=== PATIENT | female | born 2000 | race Caucasian/White ===

== ENCOUNTER 2022-12-16 05:13 | Inpatient (IN) | payer BC ==
[2022-12-16] MEDS ORDERED: NA CHLORIDE 0.9% 1,000 ML ONE ×2 (06:16→07:36)
[2022-12-16] MEDS ORDERED: MORPHINE 4 MG/ML SYR ONE ×3 (06:16→09:05)
[2022-12-16] MEDS ORDERED: ONDANSETRON 4 MG/2 ML VIAL ONE ×2 (06:16→07:35)
[2022-12-16 06:19] LABS: Absolute Lymphocytes (CBC) 1.9 K/uL (0.7-4.9); Hematocrit 40.6 % (36.0-45.0); Lymphocytes % 17.5 % (15.3-44.8); MCV 91.5 fL (80-100); MPV 7.4 fL (7.6-11.3); RBC Red Blood Cell Count 4.44 M/uL (3.86-4.86)
[2022-12-16 06:29] LABS: Urine Blood 2+ (Negative); Urine Glucose Trace (Negative); Urine Protein 1+ (Negative)
[2022-12-16 06:34] LABS: Albumin 3.6 g/dL (3.4-5.0); Bilirubin Total 0.3 mg/dL (0.2-1.0); Potassium 3.4 mEq/L (3.5-5.1); Protein, Total 7.4 g/dL (6.4-8.2)
[2022-12-16 06:55] LABS: Specific Gravity 1.016 (1.005-1.030); Urine Bacteria <20 /HPF (<20); Urine Bilirubin NEGATIVE (Negative); Urine Blood 1+ (Negative); Urine Clarity Clear (Clear); Urine Color Yellow (Yellow); Urine Glucose NEGATIVE (Negative); Urine Protein TRACE (Negative); Urine Urobilinogen Normal (Normal); Urine pH 5.5 (5.0-7.0)
[2022-12-16] MEDS ORDERED: METOCLOPRAMIDE 10 MG/2mL INJ ONE (07:34)
--- NOTE | 2022-12-16 08:03 | RAD REPORT ---
EXAM DESCRIPTION: CT - Abdomen Pelvis W Contrast - 12/16/2022 7:05 am CLINICAL HISTORY: LOWER ABD PAIN, NAUSEA COMPARISON: No comparisons TECHNIQUE: Thin cut axial CT imaging of the abdomen and pelvis was performed following intravenous a dministration of 90 mL Isovue 300. Multiplanar reformats were generated and reviewed. All CT scans are performed using dose optimization technique as appropriate and may include automated exposure control or mA/KV adjustment according to patient size. FINDINGS: Incidentally noted peripheral right lower lobe 5 millimeter nodule on axial image 17. This is probably benign given size. No other suspicious findings in the lung bases. The liver, spleen, and pancreas show no suspicious findings. Gallbladder and biliary tree are also wi thout suspicious finding. Patchy enhancement of the renal cortex bilaterally, without significant perinephric fat stranding. No suspicious masses. A 2 millimeter left superior pole nonobstructing calculus. Sub centimeter fluid d ensity cortical cysts bilaterally, too small to characterize. Hydronephrosis. . No dilated bowel loops. Long segment of colonic wall thickening and mucosal hyperenhancement involvin g the distal transverse colon, to the level of the splenic flexure. No free air, free fluid or inflam matory stranding. No hernia, mass or bulky lymphadenopathy. The urinary bladder is without significan t finding. No suspicious bony findings. IMPRESSION: Long segment of colonic wall thickening and mucosal hyperenhancement involving the dista l transverse colon and splenic flexure, concerning for acute infectious or inflammatory colitis. Patchy enhancement of the renal cortex bilaterally. Findings could relate to early pyelonephritis angie bill other inflammatory changes such as interstitial nephritis. Please correlate clinically and with r enal function tests. The findings were communicated to Greg Serna on 12/16/2022 at 07:57 hours.
--- NOTE | 2022-12-16 08:22 | EDPHYS ---
Physician Documentation [facility] Name: Audrey Goode Age: 22 yrs Sex: Female : 2000 Arrival Date: 12/16/2022 Time: 05:16 Bed 20 Private MD: ED Physician Christopher Drake HPI: 12/16 05:49 This 22 yrs old Female presents to ER via Unassigned with complaints of sp4 Abdominal Cramping, Abdominal Pain, Vomiting. 08:14 22-year-old female presents with acute onset of nausea vomiting and moderate to severe sp4 lower abdominal pain just prior to arrival. Patient denies possibility of being and has no prior medical history. Patient denied bloody stools or pain or burning on urination. Historical: - Allergies: 06:00 No Known Allergies; kl - PMHx: 06:00 Migraine; kl - Immunization history:: Adult Immunizations not up to date. - Social history:: Smoking status: Patient denies any tobacco usage or history of. - Family history:: not pertinent. ROS: 08:14 Constitutional: Negative for fever, chills, and weight loss, positive for feeling sp4 unwell Eyes: Negative for injury, pain, redness, and discharge, ENT: Negative for injury, pain, and discharge, Abdomen/GI: Negative constipation, positive lower abdominal pain, nausea, vomiting, watery diarrhea, nonbloody diarrhea Back: Negative for injury and pain, : Negative for injury, bleeding, discharge, and swelling. 08:14 All other systems are negative. Exam: 08:14 Constitutional: This is a well developed, well nourished patient who is awake, alert, sp4 uncomfortable appearing female in moderate distress secondary to pain Head/Face: Normocephalic, atraumatic. Eyes: Pupils equal round and reactive to light, extra-ocular motions intact. Lids and lashes normal. Conjunctiva and sclera are not injected. Cornea within normal limits. Periorbital areas with no swelling, redness, or edema. ENT: Nares patent. No nasal discharge, no septal abnormalities noted. Tympanic membranes are normal and external auditory canals are clear. Oropharynx with no redness, swelling, or masses, exudates, or evidence of obstruction, uvula midline. Mucous membranes moist. Neck: Trachea midline, no thyromegaly or masses palpated, and no cervical lymphadenopathy. Supple, full range of motion without nuchal rigidity, or vertebral point tenderness. No Meningismus. Chest/axilla: Normal chest wall appearance and motion. Nontender with no deformity. No lesions are appreciated. Cardiovascular: Regular rate and rhythm with a normal S1 and S2. No gallops, murmurs, or rubs. Normal PMI, no JVD. No pulse deficits. Respiratory: Lungs have equal breath sounds bilaterally, clear to auscultation and percussion. No rales, rhonchi or wheezes noted. No increased work of breathing, no retractions or nasal flaring. Abdomen/GI: Soft, with normal bowel sounds. No distension or tympany. Lower abdominal tenderness right more than left, equivocal rebound, voluntary guarding. There is no rigidity Back: No spinal tenderness. No costovertebral tenderness. Skin: Warm, dry with normal turgor. Normal color with no rashes, no lesions, and no evidence of cellulitis. MS/ Extremity: Pulses equal, no cyanosis. Neurovascular intact. Full, normal range of motion. Neuro: Awake and alert, GCS 15, oriented to person, place, time, and situation. Cranial nerves II-XII grossly intact. Motor strength 5/5 in all extremities. Sensory grossly intact. Psych: Awake, alert, with orientation to person, place and time. Behavior, mood, and affect are within normal limits Vital Signs: 05:48 BP 142 / 108; Pulse 112; Resp 22; Temp 98.1; Pulse Ox 100% on R/A; Weight 51.26 kg; wm Height 5 ft. 3 in. ; Pain 9/10; 08:05 BP 121 / 79; Pulse 100; Resp 15 S; Pulse Ox 98% on R/A; kc6 05:48 Body Mass Index 20.02 (51.26 kg, 160.02 cm) 05:48 Pain Scale: Adult MDM: 05:54 Patient medically screened. sp4 08:14 Differential diagnosis: STD, Inflammatory bowel disease, irritable bowel syndrome, sp4 colitis, enteritis, pancreatitis, appendicitis, ovarian cyst, bleeding ovarian cyst. Data reviewed: vital signs, nurses notes, lab test result(s), amylase and lipase, CBC, electrolytes, hepatic panel, urinalysis, UPT: radiologic studies, CT scan. Consideration of Admission/Observation Patient was admitted/placed on observation. Escalation of care including admission/observation considered. Patient appropriate for admission. ED course: CT revealed signs of acute transverse colitis, patient has no signs of appendicitis or ruptured ovarian cyst, CT also revealed bilateral perinephric stranding. Patient's pain has improved after IV medications and IV hydration, patient was started on IV antibiotics. Patient was discussed with admitting hospitalist Dr. Vinson who accepted patient for observation IV therapy IV antibiotics. Condition on admit as stated is stable . 12/16 05:54 Order name: IV Saline Lock; Complete Time: 06:22 sp4 12/16 05:54 Order name: Labs collected and sent; Complete Time: 06:22 sp4 12/16 05:49 Order name: Urine Test (obtain specimen); Complete Time: 06:25 sp4 12/16 05:49 Order name: Urinalysis W/Microscopic; Complete Time: 07:28 sp4 12/16 05:54 Order name: CBC with Diff; Complete Time: 07:28 sp4 12/16 05:54 Order name: CMP; Complete Time: 07:28 sp4 12/16 05:54 Order name: Lipase; Complete Time: 07:28 sp4 12/16 06:29 Order name: Urine Dipstick-Ancillary; Complete Time: 07:28 EDMS 12/16 06:29 Order name: Urine --Ancillary (enter results); Complete Time: 08:05 wm 12/16 05:54 Order name: CT Abd/Pelvis - IV Contrast Only; Complete Time: 08:05 sp4 12/16 08:06 Interpretation: Abnormal. sp4 Administered Medications: 06:16 Drug: NS 0.9% IV 1000 ml Route: IV; Rate: 1 bolus; Site: right antecubital; kl 06:29 Follow up: Response: No adverse reaction; Marked relief of symptoms pf1 07:00 Follow up: IV Status: Completed infusion; IV Intake: 1000ml pf1 06:16 Drug: Ondansetron IVP 4 mg Route: IVP; Site: right antecubital; kl 06:29 Follow up: Response: No adverse reaction; Marked relief of symptoms; Nausea is decreasedpf1 06:16 Drug: morphine IVP or IV 4 mg Route: IVP; Infused Over: 4 mins; Site: right antecubital;kl 06:29 Follow up: Response: No adverse reaction; Marked relief of symptoms; Pain is decreased; pf1 RASS: Alert and Calm (0) 07:41 Drug: NS 0.9% IV 1000 ml Route: IV; Rate: 125 ml/hr; Site: right forearm; kc6 07:41 Drug: metoCLOPramide IVP 10 mg Route: IVP; Site: right forearm; kc6 07:41 Drug: Ondansetron IVP 4 mg Route: IVP; Site: right forearm; kc6 07:41 Drug: morphine IVP or IV 4 mg Route: IVP; Infused Over: 4 mins; Site: right forearm; kc6 Disposition Summary: 12/16/22 08:21 Hospitalization Ordered Hospitalization Status: Observation sp4 Provider: Nathan Vinson sp4 Location: Telemetry/MedSurg (observation) sp4 Condition: Stable sp4 Problem: new sp4 Symptoms: have improved sp4 Bed/Room Type: Standard sp4 Room Assignment: sp4 Diagnosis - Other specified noninfective gastroenteritis and colitis sp4 - Acute colitis, acute enteritis, lower abdominal pain, nausea vomiting and diarrhea sp4 Discharge Instructions: - Discharge Summary Sheet pf1 Forms: - SBAR form pf1 - Medication Reconciliation Form sp4 Signatures: Dispatcher [employer] Tish Bejaraon RN RN kl Campbell, Kaitlyn, RN RN kc6 Potepalov, Sergey, MD MD sp4 Olga osei RN pf1
--- NOTE | 2022-12-16 08:22 | ER ---
Nurse's Notes [facility] Name: Audrey Goode Age: 22 yrs Sex: Female : 2000 Arrival Date: 12/16/2022 Time: 05:16 Bed 20 Private MD: Diagnosis: Other specified noninfective gastroenteritis and colitis;Acute colitis, acute enteritis, lower abdominal pain, nausea vomiting and diarrhea Presentation: 12/16 05:58 Chief complaint: Patient states: lower abdominal pain. Coronavirus screen: Vaccine kl status: Patient reports receiving the 2nd dose of the covid vaccine. Ebola Screen: Patient negative for fever greater than or equal to 101.5 degrees Fahrenheit, and additional compatible Ebola Virus Disease symptoms. Initial Sepsis Screen: Does the patient meet any 2 criteria? No. Patient's initial sepsis screen is negative. Does the patient have a suspected source of infection? No. Patient's initial sepsis screen is negative. Risk Assessment: Do you want to hurt yourself or someone else? Patient reports no desire to harm self or others. 05:58 Method Of Arrival: Ambulatory kl 05:58 Acuity: JASON 3 kl Triage Assessment: 06:00 General: Appears uncomfortable, Behavior is calm, cooperative. Pain: Complains of pain kl in suprapubic area. GI: Reports nausea, vomiting. Historical: - Allergies: 06:00 No Known Allergies; kl - PMHx: 06:00 Migraine; kl - Immunization history:: Adult Immunizations not up to date. - Social history:: Smoking status: Patient denies any tobacco usage or history of. - Family history:: not pertinent. Screenin:00 [facility] ED Fall Risk Assessment (Adult) History of falling in the last 3 months, pf1 including since admission No falls in past 3 months (0 pts) Confusion or Disorientation No (0 pts) Intoxicated or Sedated No (0 pts) Impaired Gait No (0 pts) Mobility Assist Device Used No (0 pt) Altered Elimination No (0 pt) Score/Fall Risk Level 0 - 2 = Low Risk Oriented to surroundings, Maintained a safe environment, Educated pt \T\ family on fall prevention, incl call for assistance when getting out of bed, Assessed \T\ reinforced patient's understanding of fall precautions, Provided non-skid footwear, Hourly rounding (assess needs \T\ fall precautionary measures) done, Used ambulatory aids as needed (educated on \T\ assisted with). 06:00 Abuse screen: Denies threats or abuse. Nutritional screening: No deficits noted. pf1 Tuberculosis screening: No symptoms or risk factors identified. Assessment: 06:00 General: Appears in no apparent distress. uncomfortable, well groomed, well developed, pf1 Behavior is calm, cooperative, appropriate for age, quiet. 06:00 Pain: Complains of pain in lower abdominal pain. Neuro: No deficits noted. Level of pf1 Consciousness is awake, alert, obeys commands, Oriented to person, place, time, situation. Cardiovascular: No deficits noted. Capillary refill < 3 seconds Patient's skin is warm and dry. Respiratory: No deficits noted. Airway is patent Trachea midline Respiratory effort is even, unlabored, Respiratory pattern is regular, symmetrical. GI: Abdomen is flat, non-distended, Bowel sounds present X 4 quads. Abd is soft Abdomen is tender to palpation in right lower quadrant and left lower quadrant Reports lower abdominal pain, diarrhea, nausea, vomiting, since 0300 this AM. : No deficits noted. No signs and/or symptoms were reported regarding the genitourinary system. EENT: No deficits noted. No signs and/or symptoms were reported regarding the EENT system. Derm: No deficits noted. No signs and/or symptoms reported regarding the dermatologic system. 07:00 General: Appears in no apparent distress. uncomfortable, Behavior is calm, cooperative, kc6 appropriate for age. Pain: Complains of pain in left lower quadrant and right lower quadrant Pain does not radiate. Pain currently is 8 out of 10 on a pain scale. Quality of pain is described as crampy, dull, Is continuous, Alleviated by nothing. Aggravated by eating, drinking, Also complains of no other associated symptoms. Neuro: Yates Agitation-Sedation Scale (RASS): 0 - Alert and Calm Level of Consciousness is awake, alert, obeys commands, Oriented to person, place, time, situation, Appropriate for age. Cardiovascular: Capillary refill < 3 seconds. Respiratory: Airway is patent Trachea midline Respiratory effort is even, unlabored, Respiratory pattern is regular, symmetrical. GI: Abdomen is flat, non-distended, Bowel sounds present X 4 quads. Abd is soft X 4 quads Abdomen is tender to palpation in right lower quadrant and left lower quadrant Reports lower abdominal pain, diarrhea, nausea, vomiting. : No signs and/or symptoms were reported regarding the genitourinary system. EENT: No signs and/or symptoms were reported regarding the EENT system. Derm: No signs and/or symptoms reported regarding the dermatologic system. Skin is intact, Skin is pink, warm \T\ dry. Musculoskeletal: No signs and/or symptoms reported regarding the musculoskeletal system. Circulation, motion, and sensation intact. Capillary refill < 3 seconds, Range of motion: intact in all extremities. Vital Signs: 05:48 BP 142 / 108; Pulse 112; Resp 22; Temp 98.1; Pulse Ox 100% on R/A; Weight 51.26 kg; wm Height 5 ft. 3 in. ; Pain 9/10; 08:05 BP 121 / 79; Pulse 100; Resp 15 S; Pulse Ox 98% on R/A; kc6 05:48 Body Mass Index 20.02 (51.26 kg, 160.02 cm) 05:48 Pain Scale: Adult ED Course: 05:16 Patient arrived in ED. ja2 05:48 Christopher Drake MD is Attending Physician. sp4 05:53 Patient has correct armband on for positive identification. Placed in gown. Bed in low wm position. Call light in reach. Side rails up X 1. Adult w/ patient. Client placed on continuous cardiac and pulse oximetry monitoring. NIBP monitoring applied. lunchroom monitor on. Pulse ox on. 06:00 Triage completed. kl 06:11 Initial lab(s) drawn, by me, sent to lab. Inserted saline lock: 20 gauge in right wm forearm, using aseptic technique. Blood collected. 06:16 CBC with Diff Sent. kl 06:17 CMP Sent. kl 06:17 Lipase Sent. kl 06:22 Olga osei, DOLORES is Primary Nurse. pf1 06:22 CMP Sent. wm 06:22 Lipase Sent. wm 06:22 Urinalysis W/Microscopic Sent. wm 07:07 CT Abd/Pelvis - IV Contrast Only In Process Unspecified. EDMS 08:20 Nathan Vinson MD is Hospitalizing Provider. sp4 Administered Medications: 06:16 Drug: NS 0.9% IV 1000 ml Route: IV; Rate: 1 bolus; Site: right antecubital; kl 06:29 Follow up: Response: No adverse reaction; Marked relief of symptoms pf1 07:00 Follow up: IV Status: Completed infusion; IV Intake: 1000ml pf1 06:16 Drug: Ondansetron IVP 4 mg Route: IVP; Site: right antecubital; kl 06:29 Follow up: Response: No adverse reaction; Marked relief of symptoms; Nausea is decreasedpf1 06:16 Drug: morphine IVP or IV 4 mg Route: IVP; Infused Over: 4 mins; Site: right antecubital;kl 06:29 Follow up: Response: No adverse reaction; Marked relief of symptoms; Pain is decreased; pf1 RASS: Alert and Calm (0) 07:41 Drug: NS 0.9% IV 1000 ml Route: IV; Rate: 125 ml/hr; Site: right forearm; kc6 07:41 Drug: metoCLOPramide IVP 10 mg Route: IVP; Site: right forearm; kc6 07:41 Drug: Ondansetron IVP 4 mg Route: IVP; Site: right forearm; kc6 07:41 Drug: morphine IVP or IV 4 mg Route: IVP; Infused Over: 4 mins; Site: right forearm; kc6 Intake: 07:00 IV: 1000ml; Total: 1000ml. pf1 Outcome: 08:21 Decision to Hospitalize by Provider. sp4 Signatures: Dispatcher [employer] Tish Bejarano RN RN kl Marsh, Wendy wm Alexander, Jessica ja2 Campbell, Kaitlyn, RN RN kc6 Olga osei RN RN pf1 Christopher Drake MD MD sp4
[2022-12-16] MEDS ORDERED: METRONIDAZOLE 500mg IVPB 500 MG/100 ML BAG IV ONE (08:23)
[2022-12-16] MEDS ORDERED: NA CHLORIDE 0.9% 50 ML ONE (08:23)
[2022-12-16] MEDS ORDERED: CEFTRIAXONE 1000 MG/VIAL ONE (08:23)
[2022-12-16] MEDS ORDERED: ACETAMINOPHEN 500 MG TAB PO PRN (09:43)
[2022-12-16] MEDS ORDERED: HYDROMORPHONE HCL 1 MG/ML INJ IV PRN (09:45)
[2022-12-16] MEDS ORDERED: D5.45NS W/KCL 20MEQ 1,000 ML IV SCH (10:00)
[2022-12-16] MEDS: D5.45NS W/KCL 20MEQ 1,000 ML IV SCH ×2 (10:00→20:34)
[2022-12-16] MEDS ORDERED: D5.45NS W/KCL 20MEQ 1,000 ML IV ONE (10:22)
[2022-12-16 10:43] LABS: SARS-CoV-2 Antigen Rapid Res Negative (Negative)
--- NOTE | 2022-12-16 11:46 | P.HP ---
Certification for Inpatient Patient admitted to: Inpatient With expected LOS: <2 Midnights Practitioner: I am a practitioner with admitting privileges, knowledge of patient current condition, hospital course, and medical plan of care. Services: Services provided to patient in accordance with Admission requirements found in Title 42 Section 412.3 of the Code of Federal Regulations Patient History Date of Service: 12/16/22 Reason for admission: Lower ABD pain, nausea/vomiting/diarrhea History of Present Illness: 22yo F, PMH: Migraine Presented to the ED due to lower abdominal pain, associated with nausea and vomitting. Symptoms began approximately at 3 AM. She was feeling her normal self prior to this and was not doing any strenuous physical activity at the time. Denies fever/chills, no sick contacts, no prior episodes similar to this. Pain in lower abdomen, radiates to lower back. Patient notes shes been on OCP ~1.5 years, and started on a anti-fungal ~1.5-2 weeks ago for "splotches" on RLE that has since resolved. reports resolution of symptoms yet. In the ED, initial CT reports patient to have leukocytosis, edema in long segment of colon, hyperenhancement involving the distal transverse colon and splenic flexure; with concern for inflammatory vs infectious colitis etiology. Allergies No Known Allergies Allergy (Unverified 12/16/22 09:55) Home Medications: Atogepant [Qulipta] 60 mg PO DAILY 12/16/22 Erenumab-Aooe [Aimovig Autoinjector] 140 mg IN SEECOM 12/16/22 terbinafine HCL [Terbinafine HCl] 250 mg PO DAILY 12/16/22 - Past Medical/Surgical History Diabetic: No -: Migraine Past Surgical History: Patient denies surgical history - Family History Father -: Hypertension Mother -: Hypertension - Social History Smoking Status: Never smoker Alcohol use: No CD- Drugs: No Place of Residence: Home Review of Systems 10-point ROS is otherwise unremarkable Physical Examination - Physical Exam General: Alert, Oriented x3, Other (uncomfortable appearing) HEENT: EOMI, Sclerae nonicteric Neck: Supple, No LAD Respiratory: Clear to auscultation bilaterally, Normal air movement Cardiovascular: No edema, Other (sinus tachycardia) Gastrointestinal: Soft and benign, Tenderness (diffuse) Musculoskeletal: No contractures, No tenderness Integumentary: No rashes, No significant lesion Neurological: Normal speech, Normal strength at 5/5 x4 extr, Normal affect - Studies Laboratory Data (last 24 hrs) 12/16/22 06:10: Sodium 139, Potassium 3.4 L, BUN 11, Creatinine 0.77, Glucose 129 H, Total Bilirubin 0.3, AST 14 L, ALT 17, Alkaline Phosphatase 71, Lipase 20 12/16/22 06:10: WBC 11.00 H, Hgb 13.5, Hct 40.6, Plt Count 314 Assessment and Plan - Plan Problem List: Acute transverse colitis Migraine Nausea/Vomiting CT ABD/Pelvis w/contrast - Long segment of colonic wall thickening and mucosal hyperenhancement involving the distal transverse colon and splenic flexure, concerning for acute infectious or inflammatory colitis stool studies ordered ?crohn's vs ifnectious pain control antibiotics NPO, IVF General surgery consulted patient will need outpatient c-scope in ~4 weeks Discharge Plan: Home Plan to discharge in: 48 Hours - Advance Directives Does patient have a Living Will: No Does patient have a Durable POA for Healthcare: No - Code Status/Comfort Care Code Status Assessed: Yes Code Status: Full Code Time Spent Managing Pts Care (In Minutes): 75
--- NOTE | 2022-12-16 15:25 | P.CNS ---
Date of Consult: 12/16/22 PC: I was asked to see this 22-year-old female in regards to her abdominal pain. HPC: This lady, who is visiting from [place], had sudden onset of abdominal pain last night. She describes as being more in her pelvis. She thought initially it was an ovarian cyst. Could no longer stand the pain and was brought in for diagnosis and treatment. PSHx: Negative PMHx: Migraines Social Hx: On control, no known allergies Sys R: No cough, wheeze, shortness of breath. While she is thin anesthetic, this is not new for her and she has been thin all her life. Appetite has been good. Has not recently eaten any exotic foods. O/E: Awake alert vital signs are stable, looks quite comfortable at the moment HEENT: Within normal limits Chest: Chest movement equal bilaterally Abd: Soft nontender no guarding or rebound [place]: Intact Data: CT scan is described as being suggestive of inflammatory process in the transverse colon with possible colitis Impression: Nonsurgical abdomen Plan: The patient is being admitted at this time. She will be given some pain medicine and IV fluids, and follow closely. I imagine she will be discharged soon. I have recommended that she follow-up with her doctors in [place], and then in 2 to 3 weeks time she get a colonoscopy. She is quite amenable to this. I shall discuss with her hospitalist.
[2022-12-16] MEDS: ONDANSETRON 4 MG/2 ML VIAL IV PRN ×2 (15:43→21:41)
[2022-12-16] MEDS: METRONIDAZOLE 500mg IVPB 500 MG/100 ML BAG IV SCH (16:35)
[2022-12-16] MEDS: CIPROFLOXACIN 400mg IV 400 MG/200 ML BAG IV SCH (20:34)
[2022-12-16] MEDS: HYDROMORPHONE HCL 0.5 MG/0.5 ML INJ IV PRN (21:41)
[2022-12-17] MEDS: METRONIDAZOLE 500mg IVPB 500 MG/100 ML BAG IV SCH ×3 (01:00→16:26)
[2022-12-17] MEDS: ONDANSETRON 4 MG/2 ML VIAL IV PRN ×3 (04:48→19:53)
[2022-12-17] MEDS: D5.45NS W/KCL 20MEQ 1,000 ML IV SCH ×3 (04:49→17:26)
[2022-12-17] MEDS: HYDROMORPHONE HCL 0.5 MG/0.5 ML INJ IV PRN ×2 (04:49→09:13)
[2022-12-17 05:18] LABS: Absolute Lymphocytes (CBC) 1.7 K/uL (0.7-4.9); Hematocrit 33.7 % (36.0-45.0); Lymphocytes % 23.6 % (15.3-44.8); MCV 92.4 fL (80-100); MPV 7.2 fL (7.6-11.3); RBC Red Blood Cell Count 3.65 M/uL (3.86-4.86)
[2022-12-17 05:41] LABS: Albumin 2.7 g/dL (3.4-5.0); Bilirubin Total 0.3 mg/dL (0.2-1.0); Magnesium 1.6 mg/dL (1.6-2.4); Phosphorus 1.9 mg/dL (2.5-4.9); Potassium 3.5 mEq/L (3.5-5.1); Protein, Total 5.8 g/dL (6.4-8.2)
--- NOTE | 2022-12-17 07:10 | P.PN ---
Date of Service: 12/17/22 Subjective: feels slightly better; pain decreased, but still needing pain meds frequently unable to tolerate popsicle overnight; caused increased pain, nausea, and vomiting no BM this morning ROS: 10 point ROS as noted above, otherwise negative Physical Exam: GEN: Alert, oriented, NAD HEENT: Normal conjunctiva, sclera anicteric CV: regular rate/rhythm, no edema Pulm: Nonlabored respirations on room air ABD: Soft, mild-mod diffusive tenderness, nondistended Neuro: Normal speech, normal affect Problem List: Acute transverse colitis Migraine Nausea/Vomiting CT ABD/Pelvis w/contrast - Long segment of colonic wall thickening and mucosal hyperenhancement involving the distal transverse colon and splenic flexure, concerning for acute infectious or inflammatory colitis stool studies ordered ?crohn's vs infectious continue IV cipro/flagyl ice chips, IVF pain control General surgery consulted patient will need outpatient c-scope in ~4 weeks VTE: Ambulatory Code: Full Dispo: Home ~24-48 hours
[2022-12-17] MEDS ORDERED: MAGNESIUM SULFATE 1 gm IVPB 1 GM/100 ML BAG IV ONE ×2 (08:00→09:00)
[2022-12-17] MEDS ORDERED: POTASSIUM PHOS IN 0.9 % NACL 15 MMOL/250 ML BAG IV ONE (09:00)
[2022-12-17] MEDS: CIPROFLOXACIN 400mg IV 400 MG/200 ML BAG IV SCH ×2 (09:14→20:00)
[2022-12-18] MEDS: METRONIDAZOLE 500mg IVPB 500 MG/100 ML BAG IV SCH ×3 (00:30→16:14)
[2022-12-18] MEDS: HYDROMORPHONE HCL 0.5 MG/0.5 ML INJ IV PRN ×3 (02:00→23:06)
[2022-12-18] MEDS: ONDANSETRON 4 MG/2 ML VIAL IV PRN ×4 (02:00→23:05)
[2022-12-18] MEDS: D5.45NS W/KCL 20MEQ 1,000 ML IV SCH ×3 (02:00→22:12)
[2022-12-18 04:50] LABS: Absolute Lymphocytes (CBC) 1.9 K/uL (0.7-4.9); Hematocrit 34.7 % (36.0-45.0); Lymphocytes % 27.4 % (15.3-44.8); MCV 92.4 fL (80-100); MPV 7.3 fL (7.6-11.3); RBC Red Blood Cell Count 3.76 M/uL (3.86-4.86)
[2022-12-18 05:08] LABS: Bilirubin Total 0.3 mg/dL (0.2-1.0); Magnesium 1.9 mg/dL (1.6-2.4); Potassium 4.2 mEq/L (3.5-5.1); Protein, Total 6.4 g/dL (6.4-8.2)
[2022-12-18] MEDS ORDERED: POTASSIUM PHOS IN 0.9 % NACL 15 MMOL/250 ML BAG IV ONE (05:53)
--- NOTE | 2022-12-18 07:12 | P.PN ---
Date of Service: 12/18/22 Subjective: feels better today ABD pain this morning not as intense tolerating ice chips without issue some nausea with popsicle last night soft BM this morning ROS: 10 point ROS as noted above, otherwise negative Physical Exam: GEN: Alert, oriented, NAD HEENT: Normal conjunctiva, sclera anicteric CV: regular rate/rhythm, no edema Pulm: Nonlabored respirations on room air ABD: Soft, mild diffusive tenderness slightly more in lower abdomen, nondistended Neuro: Normal speech, normal affect Problem List: Acute transverse colitis Migraine Nausea/Vomiting CT ABD/Pelvis w/contrast - Long segment of colonic wall thickening and mucosal hyperenhancement involving the distal transverse colon and splenic flexure, concerning for acute infectious or inflammatory colitis stool studies ordered ?crohn's vs infectious continue IV cipro/flagyl IVF NPO, advance to clears this morning if worsens, will start steroids for IBD check renal U/S, CT had mild changes of kidneys, and hydro pain control General surgery consulted patient will need outpatient c-scope in ~4 weeks VTE: Ambulatory Code: Full Dispo: Home ~24-48 hours
[2022-12-18] MEDS: CIPROFLOXACIN 400mg IV 400 MG/200 ML BAG IV SCH ×2 (09:27→22:11)
[2022-12-18] MEDS: PROMETHAZINE INJ 25 MG/ML AMP IV PRN (11:07)
[2022-12-18 12:14] VITALS: BMI 19.5
--- NOTE | 2022-12-18 14:19 | RAD REPORT ---
EXAM DESCRIPTION: US - Renal Ultrasound-Complete - 12/18/2022 1:59 pm CLINICAL HISTORY: eval stone, hydro, ?infxn COMPARISON: Abdomen Pelvis W Contrast dated 12/16/2022 TECHNIQUE: Sonographic grayscale and color flow images of the kidneys and bladder were obtained. FINDINGS: Both kidneys are normal in size, shape and echotexture. The right kidney measures 10 cm in length. No hydronephrosis, focal mass or echogenic calculi. The left kidney measures 9.9 cm in length. No hydronephrosis, focal mass, or echogenic calculi. The urinary bladder is unremarkable, with no focal wall masses or echogenic calculi. The left uretera l jet was visualized documenting ureteral patency. IMPRESSION: Unremarkable renal sonogram. No hydroureteronephrosis or echogenic calculi visualized.
[2022-12-18] MEDS: METHYLPREDNISOLONE 125 MG INJ IV SCH (14:46)
[2022-12-19] MEDS: D5.45NS W/KCL 20MEQ 1,000 ML IV SCH ×4 (02:00→16:32)
[2022-12-19 03:38] LABS: Absolute Lymphocytes (CBC) 0.6 K/uL (0.7-4.9); Hematocrit 36.5 % (36.0-45.0); Lymphocytes % 10.1 % (15.3-44.8); MCV 91.7 fL (80-100); MPV 7.7 fL (7.6-11.3); RBC Red Blood Cell Count 3.98 M/uL (3.86-4.86)
[2022-12-19] MEDS: METRONIDAZOLE 500mg IVPB 500 MG/100 ML BAG IV SCH ×3 (03:40→15:40)
[2022-12-19 04:00] LABS: Albumin 3.2 g/dL (3.4-5.0); Bilirubin Total 0.3 mg/dL (0.2-1.0); Magnesium 1.8 mg/dL (1.6-2.4); Phosphorus 2.1 mg/dL (2.5-4.9); Potassium 4.2 mEq/L (3.5-5.1); Protein, Total 6.8 g/dL (6.4-8.2)
--- NOTE | 2022-12-19 07:03 | P.PN ---
Date of Service: 12/19/22 Subjective: feels better today ABD pain this morning not as intense - described as bloating sensation nausea controlled; tolerated 1 jello overnight (premedicated on zofran) tolerated some clear liquids yesterday, pt didnt want to drink too much in fear of getting nauseous no BM feels like biggest difference was after starting steroids yesterday ROS: 10 point ROS as noted above, otherwise negative Physical Exam: GEN: Alert, oriented, NAD HEENT: Normal conjunctiva, sclera anicteric CV: regular rate/rhythm, no edema Pulm: Nonlabored respirations on room air ABD: Soft, mild diffusive tenderness, mild-mod on deep palpation in mid-lower abdomen, non-distended Neuro: Normal speech, normal affect Problem List: Acute transverse colitis Migraine Nausea/Vomiting CT ABD/Pelvis w/contrast - Long segment of colonic wall thickening and mucosal hyperenhancement involving the distal transverse colon and splenic flexure, concerning for acute infectious or inflammatory colitis stool studies ordered - no BM since admission GI consulted ?crohn's vs infectious continue IV cipro/flagyl IVF advanced to clears 12/18 AM - tolerating 1 jello and ice chips advance to soft food evening 12/19 steroids started 12/18 due to ongoing nausea, inability to tolerate PO, abd pain slow improvement renal U/S - no hydro or echogenic calculi visualized, CT had mild changes of kidneys pain control patient will need outpatient c-scope in ~4 weeks VTE: Ambulatory Code: Full Dispo: Home ~24hrs; if tolerates advancement of diet
[2022-12-19] MEDS: METHYLPREDNISOLONE 125 MG INJ IV SCH (07:37)
[2022-12-19] MEDS: CIPROFLOXACIN 400mg IV 400 MG/200 ML BAG IV SCH ×2 (07:38→21:24)
[2022-12-19] MEDS: POTASS/SODIUM PHOSPHATE 1 PKT POWD.PACK PO SCH ×3 (07:38→10:40)
[2022-12-19] MEDS: ONDANSETRON 4 MG/2 ML VIAL IV PRN ×2 (07:45→17:48)
[2022-12-19] MEDS ORDERED: MAGNESIUM SULFATE 1 gm IVPB 1 GM/100 ML BAG IV ONE (09:00)
[2022-12-19] MEDS: ENSURE HIGH PROTEIN 237 ML CAN PO SCH ×2 (15:40→21:00)
[2022-12-19 21:16] VITALS: O2SAT 99
[2022-12-19] MEDS ORDERED: DICYCLOMINE HCL 10 MG CAP PO ONE (21:33)
[2022-12-19] MEDS ORDERED: KETOROLAC 30 MG/ML INJ IV ONE (21:42)
[2022-12-19] MEDS ORDERED: IBUPROFEN 400 MG TAB PO ONE (21:50)
[2022-12-19] MEDS: PROMETHAZINE INJ 25 MG/ML AMP IV PRN (22:51)
[2022-12-20] MEDS: METRONIDAZOLE 500mg IVPB 500 MG/100 ML BAG IV SCH ×2 (00:51→08:08)
[2022-12-20 03:46] LABS: Absolute Lymphocytes (CBC) 2.5 K/uL (0.7-4.9); Hematocrit 34.2 % (36.0-45.0); Lymphocytes % 23.2 % (15.3-44.8); MCV 92.5 fL (80-100); MPV 7.9 fL (7.6-11.3)
[2022-12-20 03:58] LABS: Bilirubin Total 0.2 mg/dL (0.2-1.0); Phosphorus 1.8 mg/dL (2.5-4.9); Potassium 3.9 mEq/L (3.5-5.1); Protein, Total 6.1 g/dL (6.4-8.2)
[2022-12-20] MEDS: ONDANSETRON 4 MG/2 ML VIAL IV PRN (08:08)
[2022-12-20] MEDS: METHYLPREDNISOLONE 125 MG INJ IV SCH (08:08)
[2022-12-20] MEDS: CIPROFLOXACIN 400mg IV 400 MG/200 ML BAG IV SCH (08:09)
[2022-12-20] MEDS: D5.45NS W/KCL 20MEQ 1,000 ML IV SCH (08:09)
[2022-12-20] MEDS: ENSURE HIGH PROTEIN 237 ML CAN PO SCH (08:10)
[2022-12-20 08:54] VITALS: BP 110/64; TEMP 98.1
--- NOTE | 2022-12-20 09:12 | P.DS ---
Admission Date: 12/16/22 Discharge Date: 12/20/22 Disposition: ROUTINE DISCHARGE Discharge Condition: FAIR Reason for Admission: Lower ABD pain, nausea/vomiting/diarrhea Brief History of Present Illness: 22yo F, with past medical history of migraine presented to the ED due to lower abdominal pain, associated with nausea and vomitting. She denied fever/chills, no sick contacts, no prior episodes similar to this. She reports pain in lower abdomen which radiates to her lower back. In the ED, initial CT reported edema in long segment of colon, hyperenhancement involving the distal transverse colon and splenic flexure; with concern for inflammatory vs infectious colitis etiology. Patient was hospitalized for further management. Hospital Course: Diagnosis Acute colitis Migraine Nausea/Vomiting Patient admitted to the medical floor and started on IV antibiotics. Stool studies were ordered but patient did not provide sample. GI consulted ?crohn's vs infectious She was treated with IV cipro/flagyl and later IV steroid added. She was also treated with IV fluid. Her symptoms improved and diet advanced to soft consistency which she tolerated. GI recommending outpatient colonoscopy within 4 to 6-weeks. Patient has clinically improved and deemed stable for discharge. She is discharged with oral Cipro and Flagyl and a few days of oral prednisone. She states that she will follow-up with GI at [place] for further evaluation. Vital Signs/Physical Exam: Temp Pulse Resp BP Pulse Ox 98.1 F 85 18 110/64 98 12/20/22 08:00 12/20/22 08:00 12/20/22 08:00 12/20/22 08:00 12/20/22 08:00 General: Alert, In no apparent distress, Oriented x3 HEENT: Mucous membr. moist/pink Neck: Supple, JVD not distended Respiratory: Clear to auscultation bilaterally, Normal air movement Cardiovascular: No edema, Regular rate/rhythm, Normal S1 S2 Gastrointestinal: Normal bowel sounds, Soft and benign, Non-distended Musculoskeletal: No swelling Integumentary: No rashes, No cyanosis Neurological: Normal strength at 5/5 x4 extr Laboratory Data at Discharge: WBC 10.90 thou/uL (4.3-10.9) 12/20/22 02:22 Hgb 11.7 g/dL (12.0-15.0) L 12/20/22 02:22 Hct 34.2 % (36.0-45.0) L 12/20/22 02:22 Plt Count 293 thou/uL (152-406) 12/20/22 02:22 Sodium 140 mEq/L (136-145) D 12/20/22 02:22 Potassium 3.9 mEq/L (3.5-5.1) 12/20/22 02:22 BUN 10 mg/dL (7-18) 12/20/22 02:22 Creatinine 0.71 mg/dL (0.55-1.02) 12/20/22 02:22 Glucose 111 mg/dL (74-106) H 12/20/22 02:22 Phosphorus 1.8 mg/dL (2.5-4.9) L 12/20/22 02:22 Magnesium 2.0 mg/dL (1.6-2.4) 12/20/22 02:22 Total Bilirubin 0.2 mg/dL (0.2-1.0) 12/20/22 02:22 AST 6 U/L (15-37) L 12/20/22 02:22 ALT 14 U/L (13-56) 12/20/22 02:22 Alkaline Phosphatase 51 U/L (45-117) D 12/20/22 02:22 Lipase 20 U/L (13-75) 12/16/22 06:10 Home Medications: Atogepant [Qulipta] 60 mg PO DAILY 12/16/22 Erenumab-Aooe [Aimovig Autoinjector] 140 mg IN SEECOM 12/16/22 terbinafine HCL [Terbinafine HCl] 250 mg PO DAILY 12/16/22 Ciprofloxacin HCl [Cipro] 500 mg PO BID #6 tab 12/20/22 Ondansetron [Zofran] 4 mg PO Q8H PRN #12 tab 12/20/22 metroNIDAZOLE [Flagyl] 500 mg PO Q8H #9 tab 12/20/22 predniSONE [Prednisone] 20 mg PO DAILY #3 tab 12/20/22 New Medications: Ciprofloxacin HCl [Cipro] 500 mg PO BID #6 tab metroNIDAZOLE [Flagyl] 500 mg PO Q8H #9 tab predniSONE [Prednisone] 20 mg PO DAILY #3 tab Ondansetron [Zofran] 4 mg PO Q8H PRN #12 tab PRN Reason: Nausea / Vomiting Diet: Regular Activity: Ad ashu Time spent managing pt's care (in minutes): 32
== END 2022-12-20 10:33 | disposition home or self-care (01) | DRG 392 ==
LOC: ER 05:13 → ERHOLD 09:41 → 4TH 14:49 → 2ND 12-17 15:13
PROVIDERS: ADMIT Hospitalist; ATTEND Internal Medicine
DX: K52.9 Noninfective gastroenteritis and colitis, unspecified (principal); G43.909 Migraine, unspecified, not intractable, without status migrainosus; Z79.52 Long term (current) use of systemic steroids; Z79.899 Other long term (current) drug therapy; Z20.822 Contact with and (suspected) exposure to COVID-19
CPT/HCPCS: 36415; 74177; 76770; 80053; 81001; 81003; 81025; 83690; 83735; 84100; 84145; 85025; 86140; 87811; 94760; 99285; J0744; J1170; J2405; J2550; J2765; J2930; J3475; J7030; Q9967